=== PATIENT | female | born 1995 | race Caucasian/White ===

== ENCOUNTER 2016-11-05 19:18 | Observation (INO) | payer MEDICAID ==
[~2016-11-05] VITALS: Ht 177.8 cm; Wt 100.2 kg
[~2016-11-05 19:18] MED LIST: AMOX1TAB64 PO; ARIP2TAB PO; BIRTH CONTROL; CEFD300C2 PO; FERR325T10 PO; FLUO20CA8 PO; HYDR-3240 PO; IRON PO; LEVO25TA4 PO; LEVO75TA PO; OXCA300T3 PO; OXCA600T3 PO; QUET25TA PO; [UNRECOGNIZED DRUG - OTHER]
[2016-11-05 20:27] LABS: ASPARTATE AMINO TRANSFERASE 21 U/L (15-37); BLOOD UREA NITROGEN 8 mg/dL (7-18)
[2016-11-05 20:32] LABS: HEMOGLOBIN 15.8 g/dL (11.7-16.4)
[2016-11-05 20:41] LABS: ACETAMINOPHEN < 2 mcg/mL (10-30)
[2016-11-05] MEDS ORDERED: POLYETHYLENE GLYCOL 17 GM PACKET PO PRN (22:00)
[2016-11-05] MEDS ORDERED: DOCUSATE 100 MG CAPSULE PO PRN (22:00)
[2016-11-05] MEDS ORDERED: BISACODYL 10 MG SUPP PR PRN (22:00)
[2016-11-05] MEDS ORDERED: ACETAMINOPHEN 325 MG TABLET PO PRN (22:00)
[2016-11-05] MEDS ORDERED: QUETIAPINE 25MG TABLET PO PRN (22:00)
[2016-11-05 22:54] LABS: DAU SCREEN DISCLAIMER
[2016-11-05 23:01] LABS: PATH.CAST-FLAG NOT PRESENT; SPERM-FLAG NOT PRESENT; SRC-FLAG NOT PRESENT; XTAL-FLAG NOT PRESENT; YLC-FLAG NOT PRESENT
[2016-11-06 04:32] VITALS: BP 108/74
[2016-11-06 06:57] LABS: HEMOGLOBIN 14.7 g/dL (11.7-16.4)
[2016-11-06 07:58] VITALS: BP 110/74
[2016-11-06] MEDS: LEVOTHYROXINE 75 MCG TABLET PO SCH (08:18)
[2016-11-06] MEDS: FLUOXETINE 20 MG CAPSULE PO SCH (08:18)
[2016-11-06] MEDS: ARIPIPRAZOLE 2 MG TABLET PO SCH (08:18)
[2016-11-06 19:16] VITALS: BP 108/68
[2016-11-07 07:33] VITALS: BP 99/68
[2016-11-07] MEDS: FLUOXETINE 20 MG CAPSULE PO SCH (08:17)
[2016-11-07] MEDS: ARIPIPRAZOLE 2 MG TABLET PO SCH (08:17)
[2016-11-07] MEDS: LEVOTHYROXINE 75 MCG TABLET PO SCH (08:17)
[2016-11-07] MEDS ORDERED: LORA10TA62 PO (08:59)
[2016-11-07] MEDS ORDERED: CARB200T4 PO (08:59)
[2016-11-07] MEDS ORDERED: VENL150C6 PO (09:06)
[2016-11-07] MEDS ORDERED: SULF1TAB3 PO (13:57)
[2016-11-07] MEDS ORDERED: FLUO20CA8 PO ×2 (13:57→13:59)
== END 2016-11-07 15:00 ==
LOC: ED 20:20 → EDIP 21:18 → 3E 22:13
DX: R45.851 Suicidal ideations (principal); F31.9 Bipolar disorder, unspecified; E03.9 Hypothyroidism, unspecified; F25.9 Schizoaffective disorder, unspecified; N39.0 Urinary tract infection, site not specified; D72.829 Elevated white blood cell count, unspecified; R47.9 Unspecified speech disturbances; F41.9 Anxiety disorder, unspecified; Z91.5 Personal history of self-harm; Z98.890 Other specified postprocedural states
CPT/HCPCS: 36415; 80053; 80307; 80329; 81001; 84439; 84443; 84703; 85025; 87086; 99285; G0378; G0480

== ENCOUNTER 2016-12-19 20:18 | Observation (INO) | payer MEDICAID ==
[~2016-12-19] VITALS: Ht 177.8 cm; Wt 98.5 kg
[~2016-12-19 20:18] MED LIST changes: +CARB200T4 PO; -CEFD300C2 PO; +CEFD300C37 PO; +LORA10TA62 PO; +SULF1TAB3 PO; +VENL150C6 PO
[2016-12-19] MEDS ORDERED: CHARCOAL/SORBITOL 50 GM/240 ML PO ONE (21:00)
[2016-12-19] MEDS ORDERED: CHARCOAL/SORBITOL 50 GM/240 ML ONE (21:00)
[2016-12-19 21:14] LABS: BLOOD UREA NITROGEN 5 mg/dL (7-18)
[2016-12-19 21:15] LABS: ACETAMINOPHEN < 2 mcg/mL (10-30)
[2016-12-19 23:51] LABS: DAU SCREEN DISCLAIMER
[2016-12-20] MEDS ORDERED: POTASSIUM CHLORIDE 20 MEQ TAB.ER.PRT PO ONE (02:30)
[2016-12-20] MEDS ORDERED: DOCUSATE 100 MG CAPSULE PO PRN (02:30)
[2016-12-20] MEDS ORDERED: ACETAMINOPHEN 325 MG TABLET PO PRN (02:30)
[2016-12-20] MEDS ORDERED: BISACODYL 10 MG SUPP PR PRN (02:30)
[2016-12-20] MEDS ORDERED: POLYETHYLENE GLYCOL 17 GM PACKET PO PRN (02:30)
[2016-12-20 02:45] VITALS: BP 115/80
[2016-12-20 08:49] VITALS: BP 96/65
[2016-12-20] MEDS ORDERED: LEVOTHYROXINE 75 MCG TABLET PO SCH (09:00)
[2016-12-20 20:00] VITALS: BP 115/79
== END 2016-12-21 04:05 ==
LOC: ED 22:44 → EDIP 12-20 01:08 → 3E 12-20 02:44
PROVIDERS: ADMIT Internal Medicine; ATTEND Internal Medicine
DX: T50.902A Poisoning by unspecified drugs, medicaments and biological substances, intentional self-harm, initial encounter (principal); E03.9 Hypothyroidism, unspecified; D72.828 Other elevated white blood cell count; F31.9 Bipolar disorder, unspecified; F25.9 Schizoaffective disorder, unspecified; Z91.5 Personal history of self-harm; Z98.890 Other specified postprocedural states; X58.XXXA Exposure to other specified factors, initial encounter; Y93.89 Activity, other specified; Y92.89 Other specified places as the place of occurrence of the external cause; Y99.8 Other external cause status
CPT/HCPCS: 36415; 80048; 80307; 80329; 82040; 84439; 84443; 84703; 85025; 99285; G0378; G0480

== ENCOUNTER 2017-03-15 19:54 | Emergency (ER) | payer MEDICAID ==
[~2017-03-15] VITALS: Ht 177.8 cm; Wt 98.4 kg
[2017-03-15 19:55] VITALS: BP 116/81
== END 2017-03-15 21:07 | disposition home or self-care (01) ==
LOC: ED 20:40
DX: F33.9 Major depressive disorder, recurrent, unspecified (principal); E03.9 Hypothyroidism, unspecified; F41.9 Anxiety disorder, unspecified; F25.9 Schizoaffective disorder, unspecified
CPT/HCPCS: 99284

== ENCOUNTER 2017-03-23 11:55 | Observation (INO) | payer MEDICAID ==
[~2017-03-23] VITALS: Ht 175.3 cm; Wt 100.0 kg
[2017-03-23 12:33] LABS: DAU SCREEN DISCLAIMER
[2017-03-23] MEDS ORDERED: OXCA300T PO (12:36)
[2017-03-23] MEDS ORDERED: ZIPRASIDONE PO (12:36)
[2017-03-23] MEDS ORDERED: VENL75TA PO (12:36)
[2017-03-23 12:59] LABS: BLOOD UREA NITROGEN 7 mg/dL (7-18)
[2017-03-23 13:01] LABS: ACETAMINOPHEN < 2 mcg/mL (10-30)
[2017-03-23 13:09] LABS: HEMATOCRIT 45.1 % (34.6-47.8); WHITE BLOOD COUNT 10.9 x10^3/uL (3.4-10)
[2017-03-23] MEDS ORDERED: ZIPRASIDONE 20 MG INJ IM PRN (18:30)
[2017-03-23] MEDS ORDERED: DIPHENHYDRAMINE 50 MG CAPSULE PO PRN (18:30)
[2017-03-23] MEDS ORDERED: ONDANSETRON ODT 4 MG PO PRN (18:30)
[2017-03-23] MEDS ORDERED: ZIPRASIDONE 80 MG PO SCH (18:30)
[2017-03-23] MEDS ORDERED: ACETAMINOPHEN 325 MG TABLET PO PRN (18:30)
[2017-03-23 18:36] VITALS: BP 112/78
[2017-03-23 19:17] VITALS: BP 112/78
[2017-03-23] MEDS: ENOXAPARIN 40 MG/0.4 ML SQ SCH (20:00)
[2017-03-23] MEDS: NICOTINE 14MG/24 HR PATCH.TD24 TD SCH (21:30)
[2017-03-23] MEDS: VENLAFAXINE 75MG TABLET PO SCH (21:49)
[2017-03-24 07:15] VITALS: BP 109/76
[2017-03-24] MEDS: LEVOTHYROXINE 75 MCG TABLET PO SCH (08:24)
[2017-03-24] MEDS ORDERED: LEVOTHYROXINE 75 MCG TABLET PO SCH (09:00)
[2017-03-24] MEDS ORDERED: LORA10TA3 PO (09:14)
[2017-03-24] MEDS ORDERED: ZIPR80CA3 PO (09:14)
[2017-03-24] MEDS ORDERED: ZIPR40CA3 PO (09:14)
[2017-03-24] MEDS ORDERED: CARB100T4 PO (09:20)
[2017-03-24] MEDS ORDERED: ZIPRASIDONE 40MG CAPSULE PO SCH ×3 (09:30→21:00)
[2017-03-24] MEDS ORDERED: DOCUSATE 100 MG CAPSULE PO PRN (09:30)
[2017-03-24] MEDS ORDERED: ZIPRASIDONE 40MG CAPSULE ONE (10:06)
[2017-03-24] MEDS ORDERED: DOCUSATE 100 MG CAPSULE ONE (10:06)
[2017-03-24] MEDS: LORATADINE 10 MG TABLET PO SCH (10:11)
[2017-03-24 12:09] LABS: OCCBLD OBC PASS
[2017-03-24] MEDS: ZIPRASIDONE 40MG CAPSULE PO SCH (18:37)
[2017-03-24] MEDS: ENOXAPARIN 40 MG/0.4 ML SQ SCH (20:00)
[2017-03-24 20:17] VITALS: BP 114/82
[2017-03-24] MEDS ORDERED: CARBAMAZEPINE 200 MG TABLET PO SCH (21:00)
[2017-03-24] MEDS ORDERED: OXCARBAZEPINE PO SCH (21:00)
[2017-03-24] MEDS: OXCARBAZEPINE 150 MG TABLET PO SCH (21:00)
[2017-03-24] MEDS ORDERED: CARBAMAZEPINE 100 MG TAB.CHEW PO SCH (21:00)
[2017-03-24] MEDS: DIPHENHYDRAMINE 50 MG CAPSULE PO PRN (21:16)
[2017-03-24] MEDS: VENLAFAXINE 75MG TABLET PO SCH (21:17)
[2017-03-24] MEDS: NICOTINE 14MG/24 HR PATCH.TD24 TD SCH (21:18)
[2017-03-25 07:57] VITALS: BP 112/78
[2017-03-25] MEDS: LORATADINE 10 MG TABLET PO SCH (08:19)
[2017-03-25] MEDS: LEVOTHYROXINE 75 MCG TABLET PO SCH (08:19)
[2017-03-25] MEDS: OXCARBAZEPINE 150 MG TABLET PO SCH ×2 (08:20→21:00)
[2017-03-25] MEDS ORDERED: ENOXAPARIN 40 MG/0.4 ML SQ SCH (20:00)
[2017-03-25 20:38] VITALS: BP 110/78
[2017-03-25] MEDS: DIPHENHYDRAMINE 50 MG CAPSULE PO PRN (21:29)
[2017-03-25] MEDS: VENLAFAXINE 75MG TABLET PO SCH (21:29)
[2017-03-25] MEDS: NICOTINE 14MG/24 HR PATCH.TD24 TD SCH (21:30)
[2017-03-25] MEDS: ZIPRASIDONE 40MG CAPSULE PO SCH (21:30)
[2017-03-26 07:37] VITALS: BP 102/70
[2017-03-26] MEDS: LEVOTHYROXINE 75 MCG TABLET PO SCH (08:47)
[2017-03-26] MEDS: OXCARBAZEPINE 150 MG TABLET PO SCH (08:47)
[2017-03-26] MEDS: LORATADINE 10 MG TABLET PO SCH (09:00)
== END 2017-03-26 15:05 ==
LOC: ED 12:35 → EDIP 15:50 → 3E 18:34
PROVIDERS: ADMIT Internal Medicine; ATTEND Internal Medicine
DX: R45.851 Suicidal ideations (principal); F31.9 Bipolar disorder, unspecified; F17.203 Nicotine dependence unspecified, with withdrawal; D72.829 Elevated white blood cell count, unspecified; E03.9 Hypothyroidism, unspecified; F25.9 Schizoaffective disorder, unspecified; Z91.5 Personal history of self-harm; Z98.890 Other specified postprocedural states
CPT/HCPCS: 36415; 80048; 80307; 80329; 81003; 82040; 82272; 84439; 84443; 84703; 85025; 87046; 87491; 87591; 87899; 99285; G0378; Q0162; G0480

== ENCOUNTER 2017-05-09 15:10 | Emergency (ER) | payer MEDICAID ==
[~2017-05-09] VITALS: Ht 175.3 cm; Wt 99.6 kg
[~2017-05-09 15:10] MED LIST changes: -ARIP2TAB PO; +ARIP2TAB2 PO; +CARB100T4 PO; -FERR325T10 PO; +FERR325T17 PO; +LORA10TA3 PO; +OXCA300T PO; +SULF-169 PO; -SULF1TAB3 PO; +VENL75TA PO; +ZIPR40CA3 PO; +ZIPR80CA3 PO; +ZIPRASIDONE PO
[2017-05-09] MEDS ORDERED: SODIUM CHLORIDE 0.9% 1,000ML IVBOLUS ONE (16:00)
[2017-05-09] MEDS ORDERED: SODIUM CHLORIDE FLUSH 10ML SYR IVF ONE (16:00)
[2017-05-09 16:11] LABS: HEMATOCRIT 47.5 % (34.6-47.8); WHITE BLOOD COUNT 10.4 x10^3/uL (3.4-10)
[2017-05-09 16:21] LABS: ASPARTATE AMINO TRANSFERASE 15 U/L (15-37); BLOOD UREA NITROGEN 9 mg/dL (7-18)
[2017-05-09 16:43] VITALS: BP 109/68
== END 2017-05-09 18:02 | disposition home or self-care (01) ==
LOC: ED 17:40
DX: K62.5 Hemorrhage of anus and rectum (principal); N30.01 Acute cystitis with hematuria
CPT/HCPCS: 36415; 80053; 81001; 84703; 85025; 87086; 99284

== ENCOUNTER 2017-10-16 16:45 | Emergency (ER) | payer MEDICAID ==
[~2017-10-16] VITALS: Ht 175.3 cm; Wt 81.0 kg
[2017-10-16] MEDS ORDERED: ZIPRASIDONE 20 MG INJ IM ONE ×2 (18:20→19:00)
[2017-10-16 18:51] LABS: BASOPHILS # (AUTO) 0.02 x10^3/uL (0-0.1); BASOPHILS % (AUTO) 0 % (0-1); EOSINOPHILS # (AUTO) 0.01 x10^3/uL (0-0.4); EOSINOPHILS % (AUTO) 0 % (1-7); LYMPHOCYTES # (AUTO) 1.87 x10^3/uL (1-3.4); LYMPHOCYTES % (AUTO) 23 % (22-44); MD NO; MEAN CORPUSCULAR HEMOGLOBIN 32.2 pg (27.0-34.8); MEAN CORPUSCULAR HGB CONC 34.1 g/dL (32.4-35.8); MEAN CORPUSCULAR VOLUME 94.4 fL (80-100); MEAN PLATELET VOLUME 8.6 fL (7.4-10.4); MONOCYTES # (AUTO) 0.33 x10^3/uL (0.2-0.8); MONOCYTES % (AUTO) 4 % (2-9); NEUTROPHILS # (AUTO) 6.04 x10^3/uL (1.8-6.8); NEUTROPHILS % (AUTO) 73 % (42-75); PLATELET COUNT 226 x10^3/uL (130-400); RED BLOOD COUNT 4.69 x10^6/uL (3.82-5.3); RED CELL DISTRIBUTION WIDTH 13.6 % (9.6-15.2)
[2017-10-16 18:54] LABS: ANION GAP 11 mmol/L (5-15); CALCIUM 8.8 mg/dL (8.5-10.1); CHLORIDE 108 mmol/L (98-107); CREATININE 0.95 mg/dL (0.55-1.02)
[2017-10-16 18:59] LABS: FREE T4 (FREE THYROXINE) 1.03 ng/dL (0.76-1.46)
[2017-10-16 19:01] LABS: ACETAMINOPHEN < 2 mcg/mL (10-30); SALICYLATE LEVEL < 1.7 mg/dL (2.8-20.0)
[2017-10-16] MEDS ORDERED: LEVO88TA4 PO (20:10)
[2017-10-16] MEDS ORDERED: ZIPR60CA3 PO (20:11)
[2017-10-16] MEDS ORDERED: HYDR25TA11 PO (20:12)
[2017-10-16 20:22] LABS: AMPHETAMINE SCREEN, URINE Negative (Negative); BARBITURATE SCREEN, URINE Negative (Negative); BENZODIAZEPINE SCREEN, URINE Negative (Negative); CANNABINOID SCREEN, URINE Negative (Negative); COCAINE SCREEN, URINE Negative (Negative); METHADONE SCREEN, URINE Negative (Negative); OPIATE SCREEN, URINE Negative (Negative)
[2017-10-16] MEDS ORDERED: ACETAMINOPHEN 325 MG TABLET PO PRN (22:00)
[2017-10-16] MEDS ORDERED: OXCARBAZEPINE 300MG TABLET PO SCH (22:00)
[2017-10-16] MEDS ORDERED: ZIPRASIDONE HCL 60 MG PO SCH (22:00)
[2017-10-16] MEDS ORDERED: ONDANSETRON ODT 4 MG PO PRN (22:00)
[2017-10-17 01:13] LABS: CULTURE INDICATED? YES; MICROSCOPIC INDICATED
[2017-10-17] MEDS ORDERED: ZIPRASIDONE 20MG CAPSULE ONE (03:09)
[2017-10-17] MEDS ORDERED: ERGOCALCIFEROL 50,000 UNIT CAPSULE PO SCH (08:00)
[2017-10-17] MEDS ORDERED: ZIPRASIDONE HCL 60 MG PO SCH (08:43)
[2017-10-17] MEDS ORDERED: VENLAFAXINE 75MG TABLET PO SCH (09:00)
[2017-10-17] MEDS ORDERED: LEVOTHYROXINE 88 MCG TABLET PO SCH (09:00)
[2017-10-17 12:40] VITALS: BP 103/68
== END 2017-10-17 20:22 | disposition home or self-care (01) ==
LOC: ED 19:00 → INTOOBSV 21:04 → EDIP 21:04 → UNDOADMOB 21:04 → ED 10-17 20:22
DX: R45.851 Suicidal ideations (principal); F33.9 Major depressive disorder, recurrent, unspecified; E03.9 Hypothyroidism, unspecified; F20.9 Schizophrenia, unspecified; R82.99 Other abnormal findings in urine; Z79.899 Other long term (current) drug therapy
CPT/HCPCS: 36415; 80048; 80307; 80329; 81001; 82040; 82306; 82607; 84439; 84443; 84703; 85025; 87086; 93005; 96372; 99285; J3486; Q0177; G0480

== ENCOUNTER 2018-03-15 14:39 | Emergency (ER) | payer MEDICAID ==
[~2018-03-15] VITALS: Ht 175.3 cm; Wt 90.0 kg
[~2018-03-15 14:39] MED LIST changes: +HYDR25TA11 PO; +LEVO88TA4 PO; +ZIPR60CA3 PO
[2018-03-15] MEDS ORDERED: DIAZEPAM 5 MG TABLET ONE (14:54)
[2018-03-15] MEDS ORDERED: KETOROLAC 30 MG/1 ML ONE (14:54)
[2018-03-15 15:12] LABS: BASOPHILS # (AUTO) 0.06 x10^3/uL (0-0.1); BASOPHILS % (AUTO) 1 % (0-1); EOSINOPHILS # (AUTO) 0.09 x10^3/uL (0-0.4); EOSINOPHILS % (AUTO) 1 % (1-7); LYMPHOCYTES # (AUTO) 2.02 x10^3/uL (1-3.4); LYMPHOCYTES % (AUTO) 25 % (22-44); MD NO; MEAN CORPUSCULAR HEMOGLOBIN 30.9 pg (27.0-34.8); MEAN CORPUSCULAR HGB CONC 33.7 g/dL (32.4-35.8); MEAN CORPUSCULAR VOLUME 91.8 fL (80-100); MEAN PLATELET VOLUME 8.8 fL (7.4-10.4); MONOCYTES # (AUTO) 0.36 x10^3/uL (0.2-0.8); MONOCYTES % (AUTO) 4 % (2-9); NEUTROPHILS # (AUTO) 5.61 x10^3/uL (1.8-6.8); NEUTROPHILS % (AUTO) 69 % (42-75); PLATELET COUNT 220 x10^3/uL (130-400); RED BLOOD COUNT 4.39 x10^6/uL (3.82-5.3); RED CELL DISTRIBUTION WIDTH 13.3 % (9.6-15.2)
[2018-03-15 15:21] LABS: ALBUMIN 3.9 g/dL (3.4-5.0); ANION GAP 7 mmol/L (5-15); CALCIUM 8.8 mg/dL (8.5-10.1); CHLORIDE 106 mmol/L (98-107); CREATININE 0.87 mg/dL (0.55-1.02)
[2018-03-15 15:22] LABS: SALICYLATE LEVEL < 1.7 mg/dL (2.8-20.0)
[2018-03-15 15:23] LABS: ACETAMINOPHEN < 2 mcg/mL (10-30)
[2018-03-15 17:04] LABS: HCG UR SG 1.018 (1.003-1.030)
[2018-03-15 17:17] LABS: AMPHETAMINE SCREEN, URINE Negative (Negative); BARBITURATE SCREEN, URINE Negative (Negative); BENZODIAZEPINE SCREEN, URINE Negative (Negative); CANNABINOID SCREEN, URINE Negative (Negative); COCAINE SCREEN, URINE Negative (Negative); METHADONE SCREEN, URINE Negative (Negative); OPIATE SCREEN, URINE Negative (Negative)
[2018-03-15 18:04] VITALS: BP 107/82
== END 2018-03-15 21:54 | disposition home or self-care (01) ==
LOC: ED 17:08
DX: F29 Unspecified psychosis not due to a substance or known physiological condition (principal); F32.9 Major depressive disorder, single episode, unspecified
CPT/HCPCS: 36415; 80048; 80307; 80329; 81025; 82040; 85025; 99284; G0480

== ENCOUNTER 2019-01-10 12:12 | Emergency (ER) | payer MEDICARE, MEDICAID ==
[~2019-01-10] VITALS: Ht 177.8 cm; Wt 97.0 kg
[~2019-01-10 12:12] MED LIST changes: +LORA-247 PO; -LORA10TA3 PO; -OXCA300T PO; +OXCA300T19 PO; -QUET25TA PO; +QUET25TA7 PO
--- NOTE | 2019-01-10 12:54 | NUR ---
pt up to rr by self with steady gait.
[2019-01-10 12:59] LABS: BASOPHILS # (AUTO) 0.04 x10^3/uL (0-0.1); BASOPHILS % (AUTO) 1 % (0-1); EOSINOPHILS # (AUTO) 0.29 x10^3/uL (0-0.4); EOSINOPHILS % (AUTO) 4 % (1-7); LYMPHOCYTES # (AUTO) 2.31 x10^3/uL (1-3.4); LYMPHOCYTES % (AUTO) 29 % (22-44); MD NO; MEAN CORPUSCULAR HEMOGLOBIN 31.1 pg (27.0-34.8); MEAN CORPUSCULAR HGB CONC 32.9 g/dL (32.4-35.8); MEAN CORPUSCULAR VOLUME 94.3 fL (80-100); MEAN PLATELET VOLUME 8.9 fL (7.4-10.4); MONOCYTES # (AUTO) 0.36 x10^3/uL (0.2-0.8); MONOCYTES % (AUTO) 5 % (2-9); NEUTROPHILS # (AUTO) 4.91 x10^3/uL (1.8-6.8); NEUTROPHILS % (AUTO) 62 % (42-75); PLATELET COUNT 215 x10^3/uL (130-400); RED BLOOD COUNT 4.62 x10^6/uL (3.82-5.3); RED CELL DISTRIBUTION WIDTH 13.4 % (9.6-15.2)
--- NOTE | 2019-01-10 13:04 | NUR ---
pt to ed for intermittent abd pain x3-6 months. pt states lmp 107 days ago and that per her pcp, she is not . pt states she is following up with pcp on this issue. pt also reports syncopal episode last friday with +loc. pt connected to monitors. vss. no ectopy noted. edpa to bs for assessment. awaiting further orders.
[2019-01-10 13:16] LABS: ALANINE AMINOTRANSFERASE 22 U/L (12-78); ALBUMIN 3.7 g/dL (3.4-5.0); ANION GAP 6 mmol/L (5-15); CALCIUM 8.8 mg/dL (8.5-10.1); CHLORIDE 111 mmol/L (98-107); CREATININE 0.99 mg/dL (0.55-1.02)
[2019-01-10 13:20] LABS: ALKALINE PHOSPHATASE 108 U/L (45-117); BILIRUBIN,TOTAL 0.4 mg/dL (0.2-1.0)
[2019-01-10 13:44] LABS: MICROSCOPIC NOT IND
--- NOTE | 2019-01-10 13:45 | NUR ---
pt resting in room. vss. no needs expressed. awaiting lab results.
[2019-01-10 13:57] LABS: CULTURE INDICATED? NO
--- NOTE | 2019-01-10 14:46 | NUR ---
pt resting in room. vss. iv established with us saiance. no needs expressed. awaiting ct.
[2019-01-10] MEDS ORDERED: OMNIPAQUE 350 MG/ML, 100ML BOTTLE ONE (15:41)
--- NOTE | 2019-01-10 15:44 | NUR ---
pt resting in room. vss. all results back at this time. chart up for recheck.
[2019-01-10 16:37] VITALS: BP 109/91
== END 2019-01-10 16:41 | disposition home or self-care (01) ==
LOC: ED 14:44
DX: R10.84 Generalized abdominal pain (principal); R11.2 Nausea with vomiting, unspecified; F25.9 Schizoaffective disorder, unspecified; Z72.9 Problem related to lifestyle, unspecified; F31.9 Bipolar disorder, unspecified; E03.9 Hypothyroidism, unspecified
CPT/HCPCS: 36415; 74177; 80053; 81003; 84702; 85025; 93005; 99284; Q9967

== ENCOUNTER 2019-01-30 10:18 | Inpatient (IN) | payer MEDICARE, MEDICAID ==
[~2019-01-30] VITALS: Ht 177.8 cm; Wt 97.0 kg
--- NOTE | 2019-01-30 10:41 | NUR ---
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 pt reports no previous attempts of suicide. mother at bedside. no acute distress noted.
[2019-01-30] MEDS ORDERED: LEVO100T5 PO (10:50)
[2019-01-30] MEDS ORDERED: QUET25TA7 PO (10:50)
[2019-01-30] MEDS ORDERED: PARO10TA3 PO (10:50)
[2019-01-30 11:18] LABS: BASOPHILS # (AUTO) 0.04 x10^3/uL (0-0.1); BASOPHILS % (AUTO) 1 % (0-1); EOSINOPHILS # (AUTO) 0.16 x10^3/uL (0-0.4); EOSINOPHILS % (AUTO) 2 % (1-7); LYMPHOCYTES # (AUTO) 2.03 x10^3/uL (1-3.4); LYMPHOCYTES % (AUTO) 23 % (22-44); MD NO; MEAN CORPUSCULAR HEMOGLOBIN 30.3 pg (27.0-34.8); MEAN CORPUSCULAR HGB CONC 32.6 g/dL (32.4-35.8); MEAN PLATELET VOLUME 8.4 fL (7.4-10.4); MONOCYTES # (AUTO) 0.42 x10^3/uL (0.2-0.8); MONOCYTES % (AUTO) 5 % (2-9); NEUTROPHILS # (AUTO) 6.07 x10^3/uL (1.8-6.8); NEUTROPHILS % (AUTO) 70 % (42-75); PLATELET COUNT 224 x10^3/uL (130-400); RED BLOOD COUNT 4.49 x10^6/uL (3.82-5.3); RED CELL DISTRIBUTION WIDTH 13.3 % (9.6-15.2)
[2019-01-30 11:30] LABS: ALBUMIN 3.7 g/dL (3.4-5.0); ANION GAP 7 mmol/L (5-15); CALCIUM 8.8 mg/dL (8.5-10.1); CHLORIDE 111 mmol/L (98-107); CREATININE 0.89 mg/dL (0.55-1.02)
[2019-01-30 11:44] LABS: SALICYLATE LEVEL < 1.7 mg/dL (2.8-20.0)
[2019-01-30 11:53] LABS: AMPHETAMINE SCREEN, URINE Negative (Negative); BARBITURATE SCREEN, URINE Negative (Negative); BENZODIAZEPINE SCREEN, URINE Negative (Negative); CANNABINOID SCREEN, URINE Negative (Negative); COCAINE SCREEN, URINE Negative (Negative); METHADONE SCREEN, URINE Negative (Negative); OPIATE SCREEN, URINE Negative (Negative)
--- NOTE | 2019-01-30 12:08 | NUR ---
PT MOTHER LEFT. PT CALM AND COOPERATIVE. BLANKET PROVIDED. MEAL TRY ORDERED.
--- NOTE | 2019-01-30 12:14 | NUR ---
MEAL TRAY ORDERED
--- NOTE | 2019-01-30 12:15 | NUR ---
PT SECURED IN ROOM, ROLLER GILLESPIE DOWN, SITTER AT BEDSIDE.
--- NOTE | 2019-01-30 12:39 | NUR ---
PT PROVIDED WITH SUICIDE/SECURITY LUNCH TRAY
--- NOTE | 2019-01-30 12:53 | NUR ---
REPORT GIVEN TO TAMELA DELGADO 2N
[2019-01-30] MEDS ORDERED: ACETAMINOPHEN 325 MG TABLET PO PRN (13:00)
[2019-01-30 13:08] VITALS: BP 121/87
== END 2019-01-30 17:26 | DRG 885 ==
LOC: ED 11:51 → EDIP 11:52 → ED 12:02 → 2N 13:05
PROVIDERS: ADMIT Internal Medicine; ATTEND Internal Medicine
DX: F25.0 Schizoaffective disorder, bipolar type (principal); R45.851 Suicidal ideations; E03.9 Hypothyroidism, unspecified; F41.1 Generalized anxiety disorder; Z80.0 Family history of malignant neoplasm of digestive organs; Z91.5 Personal history of self-harm
CPT/HCPCS: 36415; 80048; 80307; 82040; 84443; 84703; 85025; 99285; G0378

== ENCOUNTER 2019-01-30 14:30 | Inpatient (IN) | payer MEDICARE, MEDICAID ==
[~2019-01-30] VITALS: Ht 177.8 cm; Wt 95.6 kg
[~2019-01-30 14:30] MED LIST changes: +LEVO100T5 PO; +PARO10TA3 PO
[2019-01-30] MEDS ORDERED: ACETAMINOPHEN 325 MG TABLET PO PRN (16:30)
[2019-01-30] MEDS ORDERED: POLYETHYLENE GLYCOL 17 GM PACKET PO PRN (16:30)
[2019-01-30] MEDS ORDERED: BISACODYL 10 MG SUPP PR PRN (16:30)
[2019-01-30] MEDS ORDERED: DOCUSATE 100 MG CAPSULE PO PRN (16:30)
[2019-01-30 17:57] VITALS: BP 112/77
[2019-01-30 19:45] VITALS: BP 123/82
[2019-01-30] MEDS: ZIPRASIDONE 20MG CAPSULE PO SCH (21:16)
[2019-01-30] MEDS: OXCARBAZEPINE 300MG TABLET PO SCH (21:17)
[2019-01-31] MEDS: LEVOTHYROXINE 100 MCG TABLET PO SCH (05:38)
[2019-01-31 06:24] LABS: CULTURE INDICATED? YES; MICROSCOPIC INDICATED
[2019-01-31 06:24] LABS: ANION GAP 6 mmol/L (5-15); CALCIUM 8.7 mg/dL (8.5-10.1); CHLORIDE 109 mmol/L (98-107); CHOLESTEROL, TOTAL 174 mg/dL (140-239); CREATININE 0.79 mg/dL (0.55-1.02)
[2019-01-31 06:49] LABS: CHOL/HDL RATIO 2.5; HDL CHOL % 40 % (28-40); HDL CHOLESTEROL (DIRECT) 69 mg/dL (40-60); LDL CHOLESTEROL,CALCULATED 91 mg/dL (54-169); LDL/HDL RATIO 1.3 (0.5-3.0); TRIGLYCERIDES 70 mg/dL (50-200); VLDL CHOLESTEROL 14 mg/dL (0-25)
[2019-01-31 07:00] VITALS: BP 110/72
[2019-01-31] MEDS: PAROXETINE 10 MG TABLET PO SCH (08:45)
[2019-01-31] MEDS: OXCARBAZEPINE 300MG TABLET PO SCH ×2 (08:45→20:29)
[2019-01-31] MEDS: QUETIAPINE 25MG TABLET PO SCH (08:45)
[2019-01-31 19:13] VITALS: BP 103/69
[2019-01-31] MEDS: ZIPRASIDONE 20MG CAPSULE PO SCH (20:30)
[2019-02-01] MEDS: LEVOTHYROXINE 100 MCG TABLET PO SCH (05:53)
[2019-02-01 07:03] VITALS: BP 106/73
[2019-02-01] MEDS: OXCARBAZEPINE 300MG TABLET PO SCH ×2 (08:26→19:52)
[2019-02-01] MEDS: QUETIAPINE 25MG TABLET PO SCH (08:26)
[2019-02-01] MEDS: PAROXETINE 10 MG TABLET PO SCH (08:26)
[2019-02-01 15:01] LABS: CULTURE INDICATED? YES; MICROSCOPIC INDICATED
[2019-02-01] MEDS: ZIPRASIDONE 20MG CAPSULE PO SCH (19:51)
[2019-02-01 20:00] VITALS: BP 109/75
[2019-02-02] MEDS: LEVOTHYROXINE 100 MCG TABLET PO SCH (06:00)
[2019-02-02 07:10] VITALS: BP 129/76
[2019-02-02] MEDS: PAROXETINE 10 MG TABLET PO SCH (08:16)
[2019-02-02] MEDS: OXCARBAZEPINE 300MG TABLET PO SCH ×2 (08:16→20:23)
[2019-02-02] MEDS: QUETIAPINE 25MG TABLET PO SCH (08:16)
[2019-02-02 19:46] VITALS: BP 105/67
[2019-02-02] MEDS: ZIPRASIDONE 20MG CAPSULE PO SCH (20:23)
[2019-02-03] MEDS: LEVOTHYROXINE 100 MCG TABLET PO SCH (05:51)
[2019-02-03 07:47] VITALS: BP 90/56
[2019-02-03] MEDS: PAROXETINE 10 MG TABLET PO SCH (08:34)
[2019-02-03] MEDS: OXCARBAZEPINE 300MG TABLET PO SCH ×2 (08:34→20:36)
[2019-02-03] MEDS: QUETIAPINE 25MG TABLET PO SCH (08:35)
[2019-02-03 19:36] VITALS: BP 107/74
[2019-02-03] MEDS: ZIPRASIDONE 20MG CAPSULE PO SCH (20:36)
[2019-02-04 07:13] VITALS: BP 95/62
[2019-02-04] MEDS: LEVOTHYROXINE 100 MCG TABLET PO SCH (07:25)
[2019-02-04] MEDS: PAROXETINE 10 MG TABLET PO SCH (08:27)
[2019-02-04] MEDS: OXCARBAZEPINE 300MG TABLET PO SCH (08:28)
[2019-02-04] MEDS: QUETIAPINE 25MG TABLET PO SCH (08:28)
== END 2019-02-04 15:26 | disposition home or self-care (01) | DRG 885 ==
LOC: 3E 14:30
PROVIDERS: ADMIT Psychiatry & Neurology Psychosomatic Medicine; ATTEND Psychiatry & Neurology Psychosomatic Medicine
DX: F25.0 Schizoaffective disorder, bipolar type (principal); R45.851 Suicidal ideations; E03.9 Hypothyroidism, unspecified; E66.9 Obesity, unspecified; Z68.30 Body mass index [BMI] 30.0-30.9, adult; Z79.890 Hormone replacement therapy; Z79.899 Other long term (current) drug therapy; Z80.0 Family history of malignant neoplasm of digestive organs; Z91.5 Personal history of self-harm
CPT/HCPCS: 36415; 80048; 80061; 81001; 82140; 82607; 84439; 86592; 87086; 93005

== ENCOUNTER 2019-09-17 12:56 | Emergency (ER) | payer MEDICARE, MEDICAID ==
[~2019-09-17] VITALS: Ht 175.3 cm; Wt 96.0 kg
[~2019-09-17 12:56] MED LIST changes: +HYDR-826 PO; -HYDR25TA11 PO
[2019-09-17 13:26] VITALS: BP 117/86
--- NOTE | 2019-09-17 13:39 | NUR ---
patient arrives with a cold that began six weeks after a gallbladder surgery. then today she states she has a cough, cold and is tired. no cough noted while in room.
[2019-09-17] MEDS ORDERED: IBUPROFEN 200 MG TABLET ONE (14:31)
[2019-09-17] MEDS ORDERED: IBUPROFEN 600 MG TABLET PO ONE (15:00)
== END 2019-09-17 16:07 | disposition home or self-care (01) ==
LOC: ED 16:00
DX: J00 Acute nasopharyngitis [common cold] (principal); E03.9 Hypothyroidism, unspecified
CPT/HCPCS: 71046; 99283

== ENCOUNTER 2020-02-11 19:55 | Emergency (ER) | payer MEDICARE, MEDICAID ==
[~2020-02-11] VITALS: Ht 177.8 cm; Wt 89.5 kg
[~2020-02-11 19:55] MED LIST changes: +FLUO20CA23 PO; -FLUO20CA8 PO
[2020-02-11 20:34] LABS: BASOPHILS # (AUTO) 0.05 x10^3/uL (0-0.1); BASOPHILS % (AUTO) 1 % (0-1); EOSINOPHILS # (AUTO) 0.16 x10^3/uL (0-0.4); EOSINOPHILS % (AUTO) 2 % (1-7); LYMPHOCYTES # (AUTO) 2.88 x10^3/uL (1-3.4); LYMPHOCYTES % (AUTO) 30 % (22-44); MD NO; MEAN CORPUSCULAR HEMOGLOBIN 30.4 pg (27.0-34.8); MEAN CORPUSCULAR HGB CONC 33.1 g/dL (32.4-35.8); MEAN CORPUSCULAR VOLUME 91.9 fL (80-100); MEAN PLATELET VOLUME 9.2 fL (7.4-10.4); MONOCYTES # (AUTO) 0.43 x10^3/uL (0.2-0.8); MONOCYTES % (AUTO) 5 % (2-9); NEUTROPHILS # (AUTO) 5.96 x10^3/uL (1.8-6.8); NEUTROPHILS % (AUTO) 63 % (42-75); PLATELET COUNT 226 x10^3/uL (130-400); RED BLOOD COUNT 4.74 x10^6/uL (3.82-5.3); RED CELL DISTRIBUTION WIDTH 14.1 % (9.6-15.2)
[2020-02-11 20:42] LABS: ALANINE AMINOTRANSFERASE 21 U/L (12-78); ALBUMIN 3.9 g/dL (3.4-5.0); ANION GAP 6 mmol/L (5-15); CALCIUM 9.1 mg/dL (8.5-10.1); CHLORIDE 106 mmol/L (98-107)
[2020-02-11 20:47] LABS: ALKALINE PHOSPHATASE 100 U/L (45-117); BILIRUBIN,TOTAL 0.5 mg/dL (0.2-1.0); CREATININE 0.86 mg/dL (0.55-1.02); TOTAL PROTEIN 7.6 g/dL (6.4-8.2); TROPONIN I < 0.015 ng/mL (0.000-0.045)
[2020-02-11] MEDS ORDERED: KETOROLAC 60 MG/2 ML IM ONE (23:00)
[2020-02-11] MEDS ORDERED: KETOROLAC 60 MG/2 ML ONE (23:12)
[2020-02-11 23:17] VITALS: BP 118/77
--- NOTE | 2020-02-11 23:18 | NUR ---
Patient presents to ER c/o global CP which radiates to abd and all extremities. Patient describes the pain as stabbing and states she has had it for three weeks. Patient denies other associated symptoms such as N/V, dizziness, SOB. Patient is in NAD. Respirations even and unlabored.
[2020-02-11 23:30] LABS: HCG UR SG 1.037 (1.003-1.030); MICROSCOPIC AUTO
== END 2020-02-12 00:09 | disposition home or self-care (01) ==
LOC: ED 23:10
DX: R10.84 Generalized abdominal pain (principal); R07.89 Other chest pain; R11.2 Nausea with vomiting, unspecified; R94.31 Abnormal electrocardiogram [ECG] [EKG]; E03.9 Hypothyroidism, unspecified
CPT/HCPCS: 36415; 71046; 80053; 81001; 81025; 83690; 84484; 85025; 87086; 93005; 96372; 99285; J1885

== ENCOUNTER 2020-04-08 18:23 | Emergency (ER) | payer MEDICARE, MEDICAID ==
[~2020-04-08] VITALS: Ht 177.8 cm; Wt 94.5 kg
[2020-04-08 18:33] VITALS: BP 113/82
[2020-04-08 19:25] LABS: BASOPHILS # (AUTO) 0.04 x10^3/uL (0-0.1); BASOPHILS % (AUTO) 0 % (0-1); EOSINOPHILS # (AUTO) 0.26 x10^3/uL (0-0.4); EOSINOPHILS % (AUTO) 3 % (1-7); LYMPHOCYTES # (AUTO) 1.94 x10^3/uL (1-3.4); LYMPHOCYTES % (AUTO) 21 % (22-44); MD NO; MEAN CORPUSCULAR HEMOGLOBIN 29.6 pg (27.0-34.8); MEAN CORPUSCULAR HGB CONC 32.3 g/dL (32.4-35.8); MEAN CORPUSCULAR VOLUME 91.5 fL (80-100); MEAN PLATELET VOLUME 8.5 fL (7.4-10.4); MONOCYTES # (AUTO) 0.49 x10^3/uL (0.2-0.8); MONOCYTES % (AUTO) 5 % (2-9); NEUTROPHILS # (AUTO) 6.51 x10^3/uL (1.8-6.8); NEUTROPHILS % (AUTO) 71 % (42-75); PLATELET COUNT 218 x10^3/uL (130-400); RED BLOOD COUNT 4.26 x10^6/uL (3.82-5.3); RED CELL DISTRIBUTION WIDTH 13.6 % (9.6-15.2)
[2020-04-08 19:34] LABS: ALANINE AMINOTRANSFERASE 32 U/L (12-78); ALBUMIN 3.6 g/dL (3.4-5.0); ANION GAP 9 mmol/L (5-15); CALCIUM 8.5 mg/dL (8.5-10.1); CHLORIDE 107 mmol/L (98-107); CREATININE 0.85 mg/dL (0.55-1.02)
[2020-04-08 19:35] LABS: SALICYLATE LEVEL < 1.7 mg/dL (2.8-20.0)
[2020-04-08 19:37] LABS: AMPHETAMINE SCREEN, URINE Negative (Negative); BARBITURATE SCREEN, URINE Negative (Negative); BENZODIAZEPINE SCREEN, URINE Negative (Negative); CANNABINOID SCREEN, URINE Negative (Negative); COCAINE SCREEN, URINE Negative (Negative); METHADONE SCREEN, URINE Negative (Negative); OPIATE SCREEN, URINE Negative (Negative)
[2020-04-08 19:39] LABS: ALKALINE PHOSPHATASE 87 U/L (45-117); BILIRUBIN,TOTAL 0.3 mg/dL (0.2-1.0); TOTAL PROTEIN 6.9 g/dL (6.4-8.2)
--- NOTE | 2020-04-08 19:53 | NUR ---
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 she has no plan and made no attempts to contact her therapist prior to coming to ED. pt states if she is discharged home her plan is to sleep and not help her mom with the chores around the house. she states her hope is that we will send her to [facility]. pt also states that she stopped taking her psych medications 2 weeks ago at the instruction of her phychiatrist.
--- NOTE | 2020-04-08 19:55 | NUR ---
[facility] forensic social worker conducting assessment with me
[2020-04-08] MEDS ORDERED: latuda (19:56)
--- NOTE | 2020-04-08 19:59 | NUR ---
pt to be discharged home with mother
== END 2020-04-08 20:46 | disposition home or self-care (01) ==
LOC: ED 19:23
DX: F32.9 Major depressive disorder, single episode, unspecified (principal); E03.9 Hypothyroidism, unspecified; F20.9 Schizophrenia, unspecified
CPT/HCPCS: 36415; 80053; 80307; 84703; 85025; 99283

== ENCOUNTER 2020-07-31 13:49 | Emergency (ER) | payer MEDICARE, MEDICAID ==
[~2020-07-31] VITALS: Ht 177.8 cm; Wt 102.8 kg
[~2020-07-31 13:49] MED LIST changes: +LORA-59 PO; -LORA10TA62 PO; +latuda
[2020-07-31] MEDS ORDERED: QUET25TA5 PO (14:47)
--- NOTE | 2020-07-31 14:51 | NUR ---
DR DUBOIS AT BEDSIDE. PT ASSESSMENT AND POC DISCUSSED, QUESTIONS ANSWERED. PT VSS, CALL LIGHT W/I REACH.
[2020-07-31] MEDS ORDERED: LOPERAMIDE 2 MG CAPSULE PO ONE (15:00)
[2020-07-31] MEDS ORDERED: ONDANSETRON ODT 4 MG PO ONE (15:00)
[2020-07-31] MEDS ORDERED: MAALOX/HYOSCYAMINE/LIDOCAINE 45 ML BTL PO ONE (15:00)
[2020-07-31] MEDS ORDERED: LOPERAMIDE 2 MG CAPSULE ONE (15:02)
[2020-07-31] MEDS ORDERED: ONDANSETRON ODT 4 MG ONE (15:03)
[2020-07-31] MEDS ORDERED: MAALOX/HYOSCYAMINE/LIDOCAINE 45 ML BTL ONE (15:03)
[2020-07-31 15:05] VITALS: BP 122/76
== END 2020-07-31 15:56 | disposition home or self-care (01) ==
LOC: ED 15:15
DX: A08.4 Viral intestinal infection, unspecified (principal); Z20.828 Contact with and (suspected) exposure to other viral communicable diseases; J02.9 Acute pharyngitis, unspecified; R51.9 Headache, unspecified; R53.83 Other fatigue; E03.9 Hypothyroidism, unspecified
CPT/HCPCS: 87635; 99284; Q0162

== ENCOUNTER 2020-08-22 16:36 | Emergency (ER) | payer MEDICARE, MEDICAID ==
[~2020-08-22] VITALS: Ht 177.8 cm; Wt 103.3 kg
[~2020-08-22 16:36] MED LIST changes: +QUET25TA5 PO
[2020-08-22 17:31] LABS: MICROSCOPIC INDICATED
[2020-08-22 17:34] LABS: ANION GAP 4 mmol/L (5-15); CHLORIDE 109 mmol/L (98-107)
[2020-08-22 17:43] LABS: HCG UR SG 1.022 (1.003-1.030)
--- NOTE | 2020-08-22 18:21 | NUR ---
PT TO CT
--- NOTE | 2020-08-22 19:11 | NUR ---
BACK FROM US
[2020-08-22 19:30] LABS: BASOPHILS % (AUTO) 1 % (0-1); EOSINOPHILS % (AUTO) 4 % (1-7); LYMPHOCYTES % (AUTO) 25 % (22-44); MEAN CORPUSCULAR HGB CONC 33.1 g/dL (32.4-35.8); MEAN PLATELET VOLUME 8.8 fL (7.4-10.4); MONOCYTES % (AUTO) 5 % (2-9); NEUTROPHILS % (AUTO) 65 % (42-75); PLATELET COUNT 238 x10^3/uL (130-400)
[2020-08-22] MEDS ORDERED: OXYcodone/APAP 5/325MG TABLET PO ONE (19:30)
[2020-08-22] MEDS ORDERED: OXYcodone/APAP 5/325MG TABLET ONE (19:38)
[2020-08-22 19:42] LABS: MD NO
--- NOTE | 2020-08-22 20:19 | NUR ---
MD AT BEDSIDE TO DISCUSS PLAN OF CARE, QUESTIONS ANSWERED. STRAIGHT CATH PERFORMED PER ORDER. MD NOTIFIED OF [employer] SUBSTANCE AT WHEN CLEANING. PER MD, SET UP FOR PELVIC EXAM.
[2020-08-22 20:22] LABS: MICROSCOPIC NOT IND
[2020-08-22 20:51] VITALS: BP 110/87
--- NOTE | 2020-08-22 20:51 | NUR ---
PT RESTING IN GURNEY WATCHING TV, NAD NOTED. PELVIC COMPLETE, NO RX PER ERP AT THIS TIME. PT UP TO DRESS SELF. AWAITING LAB RESULTS.
[2020-08-22 20:55] LABS: CLUE CELLS NONE SEEN (NONE SEEN)
[2020-08-22 20:57] LABS: WET PREP WBCS NONE SEEN (FEW)
--- NOTE | 2020-08-22 21:40 | NUR ---
DC EDUCATION PROVIDED, PT DEMONSTRATES UNDERSTANDING. PT AMBULATED STEADILY TO DC WITH RN
== END 2020-08-22 21:56 | disposition home or self-care (01) ==
LOC: ED 19:23
DX: S60.221A Contusion of right hand, initial encounter (principal); G89.29 Other chronic pain; R10.31 Right lower quadrant pain; R10.2 Pelvic and perineal pain; X58.XXXA Exposure to other specified factors, initial encounter; Y93.89 Activity, other specified; Y92.89 Other specified places as the place of occurrence of the external cause; Y99.8 Other external cause status
CPT/HCPCS: 36415; 76830; 76857; 80048; 81001; 81003; 81025; 85025; 87086; 87210; 87491; 87591; 87808; 99285

== ENCOUNTER 2020-09-09 20:02 | Emergency (ER) | payer MEDICARE, MEDICAID ==
[~2020-09-09] VITALS: Ht 177.8 cm; Wt 104.1 kg
[~2020-09-09 20:02] MED LIST changes: +HYDR-1067 PO; -HYDR-3240 PO
--- NOTE | 2020-09-09 20:34 | NUR ---
PT REPORTS COMING INTO ED TONIGHT FOR A HEADACHE X3DAYS, REPORTS TAKING ADVIL AND THAT "IT IS NOT HELPING." PT DENIES VISION CHANGES, GROSS NEURO INTACT, DENIES DIZZINESS. PT SITTING UP ON GURNEY, VSS, BED IN LOWEST, CALL LIGHT ON LAP, NAD, WCTM.
[2020-09-09] MEDS ORDERED: IBUPROFEN 600 MG TABLET ONE (20:49)
[2020-09-09] MEDS ORDERED: IBUPROFEN 200 MG TABLET PO ONE (21:00)
[2020-09-09 21:29] LABS: BASOPHILS % (AUTO) 1 % (0-1); EOSINOPHILS % (AUTO) 4 % (1-7); LYMPHOCYTES % (AUTO) 32 % (22-44); MEAN CORPUSCULAR HEMOGLOBIN 28.2 pg (27.0-34.8); MEAN CORPUSCULAR HGB CONC 32.7 g/dL (32.4-35.8); MEAN PLATELET VOLUME 9.2 fL (7.4-10.4); MONOCYTES % (AUTO) 5 % (2-9); NEUTROPHILS % (AUTO) 58 % (42-75); PLATELET COUNT 219 x10^3/uL (130-400); RED BLOOD COUNT 4.81 x10^6/uL (3.82-5.3); RED CELL DISTRIBUTION WIDTH 14.9 % (9.6-15.2)
[2020-09-09 21:33] LABS: ALBUMIN 3.5 g/dL (3.4-5.0); ANION GAP 4 mmol/L (5-15); CALCIUM 8.6 mg/dL (8.5-10.1); CHLORIDE 109 mmol/L (98-107); CREATININE 0.89 mg/dL (0.55-1.02); MD NO
--- NOTE | 2020-09-09 21:50 | NUR ---
PT RESTING ON GURNEY, NAD, NO CHANGE IN CONDITION, BED IN LOWEST, CALL LIGHT ON LAP, RAILS ENGAGED. WATCHING TV, WCTM. WAITING FOR LAB RESULTS AND UA
[2020-09-09 22:01] LABS: FREE T4 (FREE THYROXINE) 1.15 ng/dL (0.76-1.46)
[2020-09-09 22:11] LABS: MICROSCOPIC NOT IND
[2020-09-09 22:25] LABS: AMPHETAMINE SCREEN, URINE Negative (Negative); BARBITURATE SCREEN, URINE Negative (Negative); BENZODIAZEPINE SCREEN, URINE Negative (Negative); CANNABINOID SCREEN, URINE Negative (Negative); COCAINE SCREEN, URINE Negative (Negative); METHADONE SCREEN, URINE Negative (Negative); OPIATE SCREEN, URINE Negative (Negative)
--- NOTE | 2020-09-09 23:00 | NUR ---
pt resting on gumack, nad, provided snacks for comfort, no change in condition, wctm. waiting for telepsych.
[2020-09-09 23:52] VITALS: BP 100/75
--- NOTE | 2020-09-09 23:52 | NUR ---
Patient given discharge instructions and they have confirmed that they understand the instructions. Patient ambulatory with steady gait. nad, denies additional questions or needs at this time. no personal belongings left in room after dc.
== END 2020-09-10 00:13 | disposition home or self-care (01) ==
LOC: ED 22:57
DX: F33.9 Major depressive disorder, recurrent, unspecified (principal); R51.9 Headache, unspecified; E03.9 Hypothyroidism, unspecified; F25.9 Schizoaffective disorder, unspecified
CPT/HCPCS: 36415; 80048; 80307; 81003; 82040; 84439; 84443; 84481; 84703; 85025; 99283

== ENCOUNTER → 2020-09-21 | Outpatient (CLI) | payer MEDICARE, MEDICAID ==
[~2020-09-21] MED LIST changes: +AZEL137S4 NAS; +LURA60TA PO; +SERT-331 PO
== END | disposition home or self-care (01) ==
LOC: STAR 14:59
PROVIDERS: ATTEND Otolaryngology
DX: Z20.822 Contact with and (suspected) exposure to COVID-19 (principal); J34.2 Deviated nasal septum; J34.3 Hypertrophy of nasal turbinates; J33.8 Other polyp of sinus; J32.2 Chronic ethmoidal sinusitis
CPT/HCPCS: 87635

== ENCOUNTER 2020-09-26 05:52 | Day surgery (SDC) | payer MEDICARE, MEDICAID ==
[~2020-09-26] VITALS: Ht 177.8 cm; Wt 103.0 kg
[2020-09-26 06:42] VITALS: BP 134/85
[2020-09-26] MEDS ORDERED: CHLORHEXIDINE 15 ML UDC MM ONE (07:00)
[2020-09-26] MEDS ORDERED: LACTATED RINGERS 1,000 ML IV SCH (07:00)
[2020-09-26] MEDS ORDERED: EPINEPHRINE TOPICAL SOLN 1 MG/ML, 30ML ONE (07:12)
[2020-09-26] MEDS ORDERED: BACITRACIN OINT 500U/GM, 15 GM ONE (07:12)
[2020-09-26] MEDS ORDERED: FLUORESCEIN SODIUM 500 MG/5 ML ONE (07:12)
[2020-09-26] MEDS ORDERED: EPINEPHRINE 1 MG/ML, 1ML ONE (07:13)
[2020-09-26] MEDS ORDERED: OXYMETAZOLINE NASAL SPRAY 0.05%,30ML ONE (07:13)
[2020-09-26] MEDS ORDERED: LIDOCAINE 1%, 20ML ONE (07:13)
[2020-09-26] MEDS ORDERED: FENTANYL PF 250 MCG/5ML ONE (07:39)
[2020-09-26] MEDS ORDERED: MIDAZOLAM 1 MG/ML, 2ML ONE (07:39)
[2020-09-26] MEDS ORDERED: MEPERIDINE/PF 25MG/0.5ML IVPush PRN (08:00)
[2020-09-26] MEDS ORDERED: OXYcodone 5 MG/5 ML ORAL.SOL UDC PO PRN (08:00)
[2020-09-26] MEDS ORDERED: hydrALAzine 20 MG/ML, 1ML IV PRN (08:00)
[2020-09-26] MEDS ORDERED: HYDROmorphone 1 MG/ML, 1ML INJ IVPush PRN (08:00)
[2020-09-26] MEDS ORDERED: LABETALOL 5MG/ML, 20ML IV PRN (08:00)
[2020-09-26] MEDS ORDERED: HALOPERIDOL 5 MG/ML IV PRN (08:00)
[2020-09-26] MEDS ORDERED: ACETAMINOPHEN 325 MG TABLET PO PRN (08:00)
[2020-09-26] MEDS ORDERED: PROMETHAZINE 25 MG/ML, 1ML IVPush PRN (08:00)
[2020-09-26] MEDS ORDERED: DIPHENHYDRAMINE 50 MG/ML, 1ML IVPush PRN (08:00)
[2020-09-26] MEDS ORDERED: ROCURONIUM 10MG/ML,5ML ONE (09:36)
[2020-09-26] MEDS ORDERED: PROPOFOL 10 MG/ML, 20ML ONE (09:36)
[2020-09-26] MEDS ORDERED: GLYCOPYRROLATE 0.2MG/1ML, 5ML ONE (09:36)
[2020-09-26] MEDS ORDERED: ONDANSETRON 2MG/ML, 2ML ONE (09:36)
[2020-09-26] MEDS ORDERED: NEOSTIGMINE 1 MG/ML, 10ML ONE (09:36)
[2020-09-26] MEDS ORDERED: SUCCINYLCHOLINE 20 MG/ML, 10ML ONE (09:36)
[2020-09-26] MEDS ORDERED: DEXAMETHASONE 4 MG/ML, 1ML ONE (09:36)
[2020-09-26] MEDS ORDERED: CEFAZOLIN 1,000 MG ONE (09:36)
[2020-09-26] MEDS ORDERED: FENTANYL PF 100 MCG/2ML ONE (10:20)
[2020-09-26] MEDS: FENTANYL PF 100 MCG/2ML IV PRN ×2 (10:24→10:34)
[2020-09-26] MEDS ORDERED: OXYcodone 5 MG/5 ML ORAL.SOL UDC ONE (10:35)
== END 2020-09-26 13:15 | disposition home or self-care (01) ==
LOC: OUT 05:52
PROVIDERS: ATTEND Otolaryngology
DX: J32.2 Chronic ethmoidal sinusitis (principal); J33.8 Other polyp of sinus; J34.2 Deviated nasal septum; J30.9 Allergic rhinitis, unspecified; J34.3 Hypertrophy of nasal turbinates; J35.2 Hypertrophy of adenoids; E03.9 Hypothyroidism, unspecified; F32.9 Major depressive disorder, single episode, unspecified; Z79.890 Hormone replacement therapy; Z79.899 Other long term (current) drug therapy
CPT/HCPCS: 30140; 30520; 31256; 31257; 81025; 88304; 88311; J0171; J0330; J0690; J1100; J2250; J2405; J2704; J3010; J7120; J2710

== ENCOUNTER 2020-10-03 08:57 | Day surgery (SDC) | payer MEDICARE, MEDICAID ==
[~2020-10-03] VITALS: Ht 177.8 cm; Wt 104.2 kg
[2020-10-03 09:28] VITALS: BP 119/81
[2020-10-03] MEDS ORDERED: LIDOCAINE 4%, 4 ML SYR/CANN TP ONE (11:21)
[2020-10-03] MEDS ORDERED: OXYMETAZOLINE NASAL SPRAY 0.05%,30ML NAS ONE (11:22)
== END 2020-10-03 11:37 | disposition home or self-care (01) ==
LOC: OR 08:57 → OUT 11:37
PROVIDERS: ATTEND Otolaryngology
DX: J32.4 Chronic pansinusitis (principal); J33.8 Other polyp of sinus; G47.33 Obstructive sleep apnea (adult) (pediatric); H60.313 Diffuse otitis externa, bilateral; Z20.822 Contact with and (suspected) exposure to COVID-19
CPT/HCPCS: 87635

== ENCOUNTER 2020-11-29 17:02 | Emergency (ER) | payer MEDICARE, MEDICAID ==
[2020-11-29 17:16] VITALS: BP 120/93
== END 2020-11-29 18:20 | disposition home or self-care (01) ==
LOC: ED 18:14
DX: F33.9 Major depressive disorder, recurrent, unspecified (principal); K29.00 Acute gastritis without bleeding
CPT/HCPCS: 99284

== ENCOUNTER 2020-12-14 12:12 | Emergency (ER) | payer MEDICARE, MEDICAID ==
[~2020-12-14] VITALS: Ht 177.8 cm; Wt 106.1 kg
[~2020-12-14 12:12] MED LIST changes: -HYDR-1067 PO; +HYDR-2214 PO
--- NOTE | 2020-12-14 12:55 | NUR ---
URINE COLLECTED/SENT TO LAB. PT STATES SOME PAIN WITH URINATION. ORDER FOR UA PLACED PE PROTOCOL. CALL LIGHT WITHIN REACH. WARM BLANKET PROVIDED.
[2020-12-14 13:17] LABS: MICROSCOPIC INDICATED
[2020-12-14 14:11] LABS: BASOPHILS % (AUTO) 1 % (0-1); EOSINOPHILS % (AUTO) 5 % (1-7); LYMPHOCYTES % (AUTO) 28 % (22-44); MEAN CORPUSCULAR HEMOGLOBIN 27.6 pg (27.0-34.8); MEAN CORPUSCULAR HGB CONC 32.9 g/dL (32.4-35.8); MONOCYTES % (AUTO) 6 % (2-9); NEUTROPHILS % (AUTO) 60 % (42-75); PLATELET COUNT 226 x10^3/uL (130-400); RED BLOOD COUNT 4.45 x10^6/uL (3.82-5.3); RED CELL DISTRIBUTION WIDTH 13.9 % (9.6-15.2)
[2020-12-14 14:14] LABS: ALBUMIN 3.4 g/dL (3.4-5.0); ANION GAP 3 mmol/L (5-15); CALCIUM 8.6 mg/dL (8.5-10.1); CHLORIDE 109 mmol/L (98-107)
[2020-12-14 14:18] LABS: ALANINE AMINOTRANSFERASE 33 U/L (12-78); ALKALINE PHOSPHATASE 93 U/L (45-117); BILIRUBIN,TOTAL 0.5 mg/dL (0.2-1.0); CREATININE 0.84 mg/dL (0.55-1.02); MD NO; TOTAL PROTEIN 6.4 g/dL (6.4-8.2)
[2020-12-14] MEDS ORDERED: KETOROLAC 30 MG/1 ML IM ONE (14:30)
[2020-12-14] MEDS ORDERED: KETOROLAC 60 MG/2 ML ONE (14:43)
--- NOTE | 2020-12-14 14:50 | NUR ---
PT MEDICATED PER ERP ORDER FOR 10/10 ABD PAIN. VSS/UPDATED IN COMPUTER. PT PENDING DISCHARGE.
[2020-12-14 15:03] VITALS: BP 121/68
== END 2020-12-14 15:05 | disposition home or self-care (01) ==
LOC: ED 14:40
DX: N30.00 Acute cystitis without hematuria (principal); R10.31 Right lower quadrant pain; R10.11 Right upper quadrant pain; R11.2 Nausea with vomiting, unspecified
CPT/HCPCS: 36415; 74021; 80053; 81001; 85025; 87077; 87086; 87186; 96372; 99284; J1885

== ENCOUNTER 2020-12-21 14:18 | Emergency (ER) | payer MEDICARE, MEDICAID ==
[~2020-12-21] VITALS: Ht 177.8 cm; Wt 105.8 kg
[2020-12-21 14:29] VITALS: BP 117/81
[2020-12-21 15:07] LABS: BASOPHILS % (AUTO) 1 % (0-1); EOSINOPHILS % (AUTO) 4 % (1-7); LYMPHOCYTES % (AUTO) 28 % (22-44); MEAN CORPUSCULAR HEMOGLOBIN 27.5 pg (27.0-34.8); MEAN CORPUSCULAR HGB CONC 32.9 g/dL (32.4-35.8); MEAN PLATELET VOLUME 9.3 fL (7.4-10.4); MONOCYTES % (AUTO) 6 % (2-9); NEUTROPHILS % (AUTO) 61 % (42-75); PLATELET COUNT 243 x10^3/uL (130-400); RED BLOOD COUNT 4.75 x10^6/uL (3.82-5.3); RED CELL DISTRIBUTION WIDTH 13.8 % (9.6-15.2)
[2020-12-21 15:11] LABS: MD NO
[2020-12-21 15:18] LABS: ALANINE AMINOTRANSFERASE 42 U/L (12-78); ALBUMIN 3.6 g/dL (3.4-5.0); ANION GAP 5 mmol/L (5-15); CALCIUM 8.9 mg/dL (8.5-10.1); CHLORIDE 108 mmol/L (98-107); CREATININE 0.87 mg/dL (0.55-1.02)
--- NOTE | 2020-12-21 15:20 | NUR ---
SIGNALS COLLECTION TECHNICIAN: PT TO ROOM FROM MARIA R SCHREIBER.
[2020-12-21 15:22] LABS: ALKALINE PHOSPHATASE 107 U/L (45-117); BILIRUBIN,TOTAL 0.3 mg/dL (0.2-1.0); TOTAL PROTEIN 7.1 g/dL (6.4-8.2)
[2020-12-21 16:19] LABS: MICROSCOPIC AUTO
--- NOTE | 2020-12-21 17:25 | NUR ---
ASSUMED CARE FOR DISCHARGE ONLY: Patient/Caregiver given discharge instructions and they have confirmed that they understand the instructions. Patient ambulatory with steady gait.
== END 2020-12-21 17:28 | disposition home or self-care (01) ==
LOC: ED 17:00
DX: R11.2 Nausea with vomiting, unspecified (principal); R19.7 Diarrhea, unspecified; R10.9 Unspecified abdominal pain; E03.9 Hypothyroidism, unspecified
CPT/HCPCS: 36415; 74018; 80053; 81001; 84703; 85025; 87086; 99284

== ENCOUNTER 2021-01-25 11:34 | Emergency (ER) | payer MEDICARE, MEDICAID ==
[~2021-01-25] VITALS: Ht 177.8 cm; Wt 108.8 kg
[2021-01-25 11:46] VITALS: BP 117/87
--- NOTE | 2021-01-25 11:55 | NUR ---
PATIENT WALKED BACK FROM TRIAGE WITH CHIEF C/O DIARRHEA, SOB, CONGESTION AND SORE THROAT X7 DAYS. DENIES FEVERS. PATIENT WAS RECENTLY IN [place], GOT BACK FRIDAY. KORIN, CALL LIGHT WITHIN REACH.
--- NOTE | 2021-01-25 12:13 | NUR ---
X-RAY AT BEDSIDE.
[2021-01-25 12:43] LABS: RAPID INFLUENZA A Negative (Negative); RAPID INFLUENZA B Negative (Negative)
--- NOTE | 2021-01-25 13:04 | NUR ---
Patient given discharge instructions and prescriptions and they have confirmed that they understand the instructions. Patient ambulatory with steady gait. NAD, all questions answered appropriately, denies additional needs at this time. No personal belongings left in room after discharge.
== END 2021-01-25 13:05 | disposition home or self-care (01) ==
LOC: ED 12:59
DX: J18.9 Pneumonia, unspecified organism (principal); Z20.822 Contact with and (suspected) exposure to COVID-19; R05 Cough; R94.31 Abnormal electrocardiogram [ECG] [EKG]; E03.9 Hypothyroidism, unspecified; Z90.49 Acquired absence of other specified parts of digestive tract; Z90.89 Acquired absence of other organs
CPT/HCPCS: 71045; 87400; 93005; 99285; U0003; U0005

== ENCOUNTER 2021-01-28 12:45 | Emergency (ER) | payer MEDICARE, MEDICAID ==
[~2021-01-28] VITALS: Ht 177.8 cm; Wt 109.5 kg
--- NOTE | 2021-01-28 13:13 | NUR ---
PA AT BS
--- NOTE | 2021-01-28 13:25 | NUR ---
PT AMBULATORY TO BR WITH UPRIGHT STEADY GAIT
--- NOTE | 2021-01-28 13:33 | NUR ---
PT TO XRAY
[2021-01-28 13:47] LABS: MICROSCOPIC AUTO
[2021-01-28] MEDS ORDERED: ACETAMINOPHEN 325 MG TABLET PO ONE (14:00)
[2021-01-28] MEDS ORDERED: KETOROLAC 30 MG/1 ML IM ONE (14:00)
[2021-01-28] MEDS ORDERED: ACETAMINOPHEN 325 MG TABLET ONE (14:01)
[2021-01-28] MEDS ORDERED: KETOROLAC 60 MG/2 ML ONE (14:01)
[2021-01-28 14:20] LABS: BASOPHILS % (AUTO) 1 % (0-1); EOSINOPHILS % (AUTO) 4 % (1-7); LYMPHOCYTES % (AUTO) 31 % (22-44); MEAN CORPUSCULAR HEMOGLOBIN 27.3 pg (27.0-34.8); MEAN CORPUSCULAR HGB CONC 32.9 g/dL (32.4-35.8); MEAN PLATELET VOLUME 8.9 fL (7.4-10.4); MONOCYTES % (AUTO) 6 % (2-9); NEUTROPHILS % (AUTO) 58 % (42-75); PLATELET COUNT 240 x10^3/uL (130-400); RED BLOOD COUNT 4.68 x10^6/uL (3.82-5.3); RED CELL DISTRIBUTION WIDTH 14.9 % (9.6-15.2)
[2021-01-28 14:28] LABS: ALANINE AMINOTRANSFERASE 38 U/L (12-78); ALBUMIN 3.5 g/dL (3.4-5.0); ANION GAP 4 mmol/L (5-15); CALCIUM 8.6 mg/dL (8.5-10.1); CHLORIDE 110 mmol/L (98-107); CREATININE 0.79 mg/dL (0.55-1.02)
[2021-01-28 14:33] LABS: ALKALINE PHOSPHATASE 97 U/L (45-117); BILIRUBIN,TOTAL 0.2 mg/dL (0.2-1.0)
[2021-01-28 14:34] VITALS: BP 102/72
--- NOTE | 2021-01-28 14:34 | NUR ---
PT RESTING ON [employer], WATCHING TV. NADN/VSS. CALL LIGHT WITHIN REACH. NO NEEDS AT THIS TIME
--- NOTE | 2021-01-28 15:31 | NUR ---
Patient given discharge instructions and they have confirmed that they understand the instructions. Patient ambulatory with steady gait.
== END 2021-01-28 15:32 | disposition home or self-care (01) ==
LOC: ED 14:19
DX: R10.84 Generalized abdominal pain (principal); R11.2 Nausea with vomiting, unspecified; R19.7 Diarrhea, unspecified; J18.9 Pneumonia, unspecified organism
CPT/HCPCS: 36415; 74021; 80053; 81001; 84703; 85025; 87086; 96372; 99284; J1885

== ENCOUNTER 2021-02-01 17:49 | Emergency (ER) | payer MEDICARE, MEDICAID ==
[~2021-02-01] VITALS: Ht 177.8 cm; Wt 109.0 kg
--- NOTE | 2021-02-01 19:17 | NUR ---
LAURA MEEKS FROM HOME FOR SI. PT WAS SEEN, [place] AND RELEASED FROM [facility] THIS AM. PT WENT HOME AND CALLED THE SUICIDE HOTLINE AND THEY WERE ABLE TO TALK HER DOWN FROM TAKING ALL HER MEDICATION. PT THEN CALLED 911 TODAY. PT REPORTS TAKING LATUDA, LEVOTHYROXINE, AND SERTRALINE WELL A UNKNOWN DEPRESSION MED
--- NOTE | 2021-02-01 19:21 | NUR ---
contacted bryon godinez regarding pt. unable to come back tonight. spoke with her on the phone and she states she is going to reach out to the [facility] provider. records were requested from the [facility]
[2021-02-01 20:06] LABS: BASOPHILS % (AUTO) 2 % (0-1); EOSINOPHILS % (AUTO) 4 % (1-7); LYMPHOCYTES % (AUTO) 26 % (22-44); MEAN CORPUSCULAR HEMOGLOBIN 27.2 pg (27.0-34.8); MEAN CORPUSCULAR HGB CONC 32.7 g/dL (32.4-35.8); MEAN PLATELET VOLUME 8.8 fL (7.4-10.4); MONOCYTES % (AUTO) 6 % (2-9); NEUTROPHILS % (AUTO) 63 % (42-75); PLATELET COUNT 253 x10^3/uL (130-400); RED BLOOD COUNT 4.56 x10^6/uL (3.82-5.3); RED CELL DISTRIBUTION WIDTH 15.5 % (9.6-15.2)
[2021-02-01 20:17] LABS: ALBUMIN 3.2 g/dL (3.4-5.0); ANION GAP 5 mmol/L (5-15); CALCIUM 8.4 mg/dL (8.5-10.1); CHLORIDE 109 mmol/L (98-107)
[2021-02-01 20:18] LABS: SALICYLATE LEVEL < 1.7 mg/dL (2.8-20.0)
[2021-02-01 20:29] LABS: CREATININE 0.88 mg/dL (0.55-1.02)
--- NOTE | 2021-02-01 20:49 | NUR ---
TASK RN: PT AMBULATORY WITH STEADY GAIT TO BATHROOM TO ATTEMPT TO PROVIDE URINE SAMPLE. PT STATES "I CAN'T PEE RIGHT NOW, I NEED SOMETHING TO DRINK." PT PROVIDED WATER PER REQUEST. SITTER REMAINS IN VIEW. SAFETY PRECAUTIONS IN PLACE.
[2021-02-01 21:42] LABS: AMPHETAMINE SCREEN, URINE Negative (Negative); BARBITURATE SCREEN, URINE Negative (Negative); BENZODIAZEPINE SCREEN, URINE Negative (Negative); CANNABINOID SCREEN, URINE Negative (Negative); COCAINE SCREEN, URINE Negative (Negative); METHADONE SCREEN, URINE Negative (Negative); OPIATE SCREEN, URINE Negative (Negative)
--- NOTE | 2021-02-01 21:56 | NUR ---
REPORT RECEIVED FROM DAVE RAPP
--- NOTE | 2021-02-01 22:01 | NUR ---
PT SITTING URPIGHT ON KORIN PANDYA. PT DENIES ANY NEEDS AT THIS TIME. SITTER IN VIEW AND SAFETY PRECAUTIONS IN PLACE
--- NOTE | 2021-02-02 00:31 | NUR ---
PT MOVED FROM ED GURNEY TO HOSPITAL BED. PT TOLERATED WELL. PT DENIES ANY ADDITIONAL NEEDS AT THIS TIME. SITTER IN VIEW, SAFETY PRECAUTIONS IN PLACE.
--- NOTE | 2021-02-02 01:22 | NUR ---
TASK RN: PT ASLEEP IN [facility] AT THIS TIME WITH NADN AND EQUAL BILATERAL RISE AND FALL OF CHEST NOTED. SITTER OUTSIDE OF ROOM FOR DIRECT OBSERVATION OF PT AT THIS TIME.
--- NOTE | 2021-02-02 06:05 | NUR ---
PT SUPINE ON HOSPITAL BED, RESTING COMFORTABLY WITH EYES CLOSED. PT DENIES ANY NEEDS AT THIS TIME. SAFETY PRECAUTIONS IN PLACE, SAFETY GILLESPIE DOWN AND SITTER IN VIEW.
--- NOTE | 2021-02-02 06:49 | NUR ---
RECEIVED REPORT FROM RILEY RAPP, PLAN OF CARE DISCUSSED. PT SLEEPING RESP EVEN AND UNLABORED, SITTER AT BS, ROOM SECURED. ORDERED BREAKFAST.
--- NOTE | 2021-02-02 06:53 | NUR ---
REPORT GIVEN TO SARITA RAPP
--- NOTE | 2021-02-02 08:19 | NUR ---
THROUGHMARIPOSA RN: SPOKE WITH [facility]. WAITING FOR PSYCH MD REVIEW OF PT CHART.
--- NOTE | 2021-02-02 08:30 | NUR ---
PT AWAKE, BREAKFAST GIVEN, VERBALIZED NO NEEDS, SITTER AT DOOR, ROOM REMAINS SECURED
--- NOTE | 2021-02-02 08:57 | NUR ---
RECEIVED REPORT FROM AMBROCIO DUNAWAY RN. PT RESTING ON HOSPITAL BED. SITTER REMAINS AT BEDSIDE. ROOM REMAINS SECURE. PT TAKING NIBBLES OF BREAKFAST.
--- NOTE | 2021-02-02 09:14 | NUR ---
ASSESSMENT COMPLETE. PT DENIES FEELING SI AT THIS TIME. STATES "I FEEL MUCH BETTER NOW". PT NOTIFIED OF POC FOR ASSESSMENT FROM PSYCH BLOOD DONOR RECRUITER SUPERVISOR. PT VERBALIZES UNDERSTANDING. SITTER REMAINS AT BEDSIDE. ROOM REMAINS SECURE.
--- NOTE | 2021-02-02 10:30 | NUR ---
PT RESTING ON BED. NADN. SITTER REMAINS AT BEDSIDE. ROOM REMAINS SECURE.
--- NOTE | 2021-02-02 11:05 | NUR ---
PT RESTING ON BED. NADN. SITTER REMAINS AT BEDSIDE. ROOM REMAINS SECURE.
--- NOTE | 2021-02-02 11:09 | NUR ---
THROUGHPUT RN: COVID RESULTS "DETECTED" BHU DECLINED PT.
--- NOTE | 2021-02-02 11:12 | NUR ---
PT CAME BACK POSITIVE FOR COVID-19. PT NOTIFIED OF RESULTS IN ROOM. SITTER NOTIFIED. ISO CART PLACED IN FRONT OF PT ROOM. PERRI DUNAWAY RN NOTIFIED OF POSITIVE RESULT.
--- NOTE | 2021-02-02 11:49 | NUR ---
THROUGHPUT RN: PACKET FAXED TO [facility]. SPOKE TO CIARA AT [facility], DISCUSSED PT DC'D FROM THERE YESTERDAY. [place] DETECTED THIS AM WITH OUR TESTING. CIARA TO DISCUSS CASE WITH ADMINISTRATION. SPOKE TO JATINDER AT [facility], NO AVAILABILTY TO ADMIT COVID POSITIVE AT THIS TIME.
--- NOTE | 2021-02-02 12:10 | NUR ---
PT PROVIDED W/ SI LUNCH TRAY. PT RESTING ON BED. NADN. SITTER REMAINS AT BEDSIDE. ROOM REMAINS SECURE. PT C/O MAIN IN HER CHEST WHEN SHE COUGHS. DENIES ANY CP WHEN SHE IS NOT COUGHING. EKG COMPLETED.
--- NOTE | 2021-02-02 13:13 | NUR ---
PT SLEEPING IN BED. NADN. SITTER REMAINS AT BEDSIDE. ROOM REMAINS SECURE.
[2021-02-02] MEDS ORDERED: DIPHENHYDRAMINE 25 MG CAPSULE PO ONE (14:00)
[2021-02-02] MEDS ORDERED: DIPHENHYDRAMINE 25 MG CAPSULE ONE (14:04)
--- NOTE | 2021-02-02 14:07 | NUR ---
PT STATES SHE IS HAVING SOME CONGESTION. DENIES CP/SOB. STATES "MELCHOR NO NOT YET". DENIES FEVERS/CHILLS. ERP DR. MACK NOTIFIED AND NEW ORDERS PLACED FOR BENADRYL 25 MG PO. PT RESTING ON [place]. KORIN. SITTER REMAINS AT BEDSIDE. ROOM REMAINS SECURE.
--- NOTE | 2021-02-02 16:15 | NUR ---
PT RESTING ON BED. NADN. SITTER REMAINS AT BEDSIDE. ROOM REMAINS SECURED.
--- NOTE | 2021-02-02 16:34 | NUR ---
BREAK RN: PT RESTING IN ROOM. NO ACUTE DISTRESS NOTED. VS STABLE. SITTER AT DOOR. WILL CONTINUE TO MONITOR WHILE PRIMARY RN IS ON BREAK.
[2021-02-02 17:30] VITALS: BP 98/68
--- NOTE | 2021-02-02 17:31 | NUR ---
PT RESTING IN BED. NADN. VSS. PT DENIES CP/SOB. SITTER REMAINS AT BEDSIDE. ROOM REMAINS SECURE. PT PROVIDED W/ SI DINNER TRAY.
--- NOTE | 2021-02-02 17:45 | NUR ---
REJI, PSYCH IMPLEMENTATION PROJECT COORDINATOR AT BEDSIDE FOR RE-EVAL.
--- NOTE | 2021-02-02 18:30 | NUR ---
PT RESTING IN BED. NADN. SITTER REMAINS AT BEDSIDE. ROOM REMAINS SECURE.
--- NOTE | 2021-02-02 19:42 | NUR ---
PT RESTING IN BED. NADN. SITTER REMAINS AT BEDSIDE. ROOM REMAINS SECURE.
--- NOTE | 2021-02-02 20:24 | NUR ---
LA RN: MILA Ayad TO ADMIT PATIENT
--- NOTE | 2021-02-02 20:43 | NUR ---
REPORT GIVEN TO LINDY, RECEIVING RN. ALL QUESTIONS ANSWERED. AWAITING PT TRANSPORT.
[2021-02-02] MEDS ORDERED: LURASIDONE 20 MG TABLET PO SCH (21:00)
[2021-02-02] MEDS ORDERED: SERTRALINE 100MG TABLET PO SCH (21:00)
[2021-02-03] MEDS ORDERED: LEVOTHYROXINE 88 MCG TABLET PO SCH (06:00)
== END 2021-02-02 20:47 ==
LOC: ED 18:17
DX: R45.851 Suicidal ideations (principal); Z20.822 Contact with and (suspected) exposure to COVID-19; F25.9 Schizoaffective disorder, unspecified; E03.9 Hypothyroidism, unspecified; Z90.49 Acquired absence of other specified parts of digestive tract; Z90.89 Acquired absence of other organs
CPT/HCPCS: 36415; 80048; 80299; 80307; 80320; 82040; 84443; 85025; 87426; 99285; Q0163; U0003; U0005; 80329; G0480

== ENCOUNTER 2021-02-14 18:45 | Emergency (ER) | payer MEDICARE, MEDICAID ==
[~2021-02-14] VITALS: Ht 177.8 cm; Wt 90.0 kg
[~2021-02-14 18:45] MED LIST changes: +LEVO88TA2 PO; +LURA20TA PO; +SERT100T32 PO
[2021-02-14 19:28] VITALS: BP 106/69
--- NOTE | 2021-02-14 19:31 | NUR ---
BIB EMS FROM HOME. PT STATES TAKING 3 80 MG PILLS OF LATUDA AND 30 10 MG PILLS OF MELATONIN IN AN ATTEMPT TO HARM HERSELF. PT STATES HE FRIEND RECENTLY , SHE WAS AT HER TODAY AND EXPRESSES WANTING TO AND SEE HER IN HEAVEN. SAFTEY MEASURES PLACED, BELONGINGS PLACED IN LOCKER AND BELONGINGS LIST MADE AND SIGNED. STATES HISTORY OF DEPRESSION, DENIES ANY OTHER HISTORY. PT STATES SHE IS UNABLE TO URINATE AT THIS TIME, AWAITING ERP EVAL
[2021-02-14 20:21] LABS: BASOPHILS % (AUTO) 1 % (0-1); EOSINOPHILS % (AUTO) 3 % (1-7); LYMPHOCYTES % (AUTO) 21 % (22-44); MEAN CORPUSCULAR HEMOGLOBIN 27.4 pg (27.0-34.8); MEAN CORPUSCULAR HGB CONC 33.3 g/dL (32.4-35.8); MEAN PLATELET VOLUME 8.8 fL (7.4-10.4); MONOCYTES % (AUTO) 5 % (2-9); NEUTROPHILS % (AUTO) 71 % (42-75); PLATELET COUNT 224 x10^3/uL (130-400); RED BLOOD COUNT 4.62 x10^6/uL (3.82-5.3); RED CELL DISTRIBUTION WIDTH 15.4 % (9.6-15.2)
[2021-02-14 20:31] LABS: ALANINE AMINOTRANSFERASE 32 U/L (12-78); ALBUMIN 3.5 g/dL (3.4-5.0); ANION GAP 6 mmol/L (5-15); CALCIUM 8.6 mg/dL (8.5-10.1); CHLORIDE 110 mmol/L (98-107); CREATININE 0.86 mg/dL (0.55-1.02)
[2021-02-14 20:41] LABS: ALKALINE PHOSPHATASE 101 U/L (45-117); BILIRUBIN,TOTAL 0.4 mg/dL (0.2-1.0)
[2021-02-14 20:47] LABS: SALICYLATE LEVEL < 1.7 mg/dL (2.8-20.0)
[2021-02-14 21:00] LABS: FREE T4 (FREE THYROXINE) 0.93 ng/dL (0.76-1.46)
--- NOTE | 2021-02-14 21:30 | NUR ---
PT AMBULATED TO RESTROOM FOR URINE SAMPLE, NO OTHER NEEDS AT THIS TIME. IN LINE OF SIGHT OF SITTER
[2021-02-14 21:54] LABS: AMPHETAMINE SCREEN, URINE Negative (Negative); BARBITURATE SCREEN, URINE Negative (Negative); BENZODIAZEPINE SCREEN, URINE Negative (Negative); CANNABINOID SCREEN, URINE Negative (Negative); COCAINE SCREEN, URINE Negative (Negative); METHADONE SCREEN, URINE Negative (Negative); OPIATE SCREEN, URINE Negative (Negative)
--- NOTE | 2021-02-14 22:34 | NUR ---
PT SLEEPING IN GURNEY, RESP EVEN/UNLABORED, IN LOINE OF SIGHT OF SITTER. MONITORS STILL IN PLACE
--- NOTE | 2021-02-14 23:26 | NUR ---
SPOKE WITH ERIBERTO AT [facility] FOR REPORT. THEY WILL FAX OVER INFO TO [facility] [facility] AND MAY ACCEPT.
--- NOTE | 2021-02-14 23:28 | NUR ---
PT PLACED ON HOSPITAL BED, RESP EVEN/UNLABORED, GIVEN JUICE PER REQUEST. IN LINE OF SIGHT OF SITTER
--- NOTE | 2021-02-14 23:30 | NUR ---
DEEPTI PANDYA) ACCEPTING PT,
== END 2021-02-15 01:10 ==
LOC: ED 20:47
DX: R45.851 Suicidal ideations (principal); F32.9 Major depressive disorder, single episode, unspecified; T65.91XA Toxic effect of unspecified substance, accidental (unintentional), initial encounter; E03.9 Hypothyroidism, unspecified; Z90.49 Acquired absence of other specified parts of digestive tract; F25.9 Schizoaffective disorder, unspecified; Y92.9 Unspecified place or not applicable
CPT/HCPCS: 36415; 80053; 80299; 80307; 80320; 80329; 84439; 84443; 84703; 85025; 99285; G0480

== ENCOUNTER 2021-02-27 16:54 | Emergency (ER) | payer MEDICARE, MEDICAID ==
[~2021-02-27] VITALS: Ht 177.8 cm; Wt 107.6 kg
--- NOTE | 2021-02-27 17:11 | NUR ---
SKILLED LABORER: EKG COMPLETE IN TRIAGE.
--- NOTE | 2021-02-27 18:49 | NUR ---
certified registered locksmith: Pt ambulatory to room from lobby at this time.
[2021-02-27] MEDS ORDERED: FAMOTIDINE 20 MG/2 ML IVPush ONE (19:30)
[2021-02-27] MEDS ORDERED: SODIUM CHLORIDE 0.9% 1,000ML IVBOLUS ONE (19:30)
[2021-02-27] MEDS ORDERED: ONDANSETRON 2MG/ML, 2ML IVPush ONE (19:30)
[2021-02-27] MEDS ORDERED: SODIUM CHLORIDE FLUSH 10ML SYR IVF ONE (19:30)
[2021-02-27 20:14] LABS: BASOPHILS % (AUTO) 1 % (0-1); EOSINOPHILS % (AUTO) 3 % (1-7); LYMPHOCYTES % (AUTO) 22 % (22-44); MEAN CORPUSCULAR HEMOGLOBIN 27.4 pg (27.0-34.8); MEAN CORPUSCULAR HGB CONC 32.7 g/dL (32.4-35.8); MONOCYTES % (AUTO) 6 % (2-9); NEUTROPHILS % (AUTO) 68 % (42-75); PLATELET COUNT 238 x10^3/uL (130-400); RED BLOOD COUNT 4.82 x10^6/uL (3.82-5.3); RED CELL DISTRIBUTION WIDTH 15.9 % (9.6-15.2)
[2021-02-27] MEDS ORDERED: FAMOTIDINE 20 MG/2 ML ONE (20:20)
[2021-02-27] MEDS ORDERED: ONDANSETRON 2MG/ML, 2ML ONE (20:20)
[2021-02-27 20:21] LABS: ALBUMIN 3.7 g/dL (3.4-5.0); ANION GAP 3 mmol/L (5-15); CALCIUM 8.7 mg/dL (8.5-10.1); CHLORIDE 110 mmol/L (98-107)
[2021-02-27 20:38] LABS: ALANINE AMINOTRANSFERASE 28 U/L (12-78); ALKALINE PHOSPHATASE 93 U/L (45-117); BILIRUBIN,TOTAL 0.2 mg/dL (0.2-1.0); CREATININE 1.02 mg/dL (0.55-1.02); TOTAL PROTEIN 7.1 g/dL (6.4-8.2)
[2021-02-27 20:46] LABS: MICROSCOPIC INDICATED
--- NOTE | 2021-02-27 21:30 | NUR ---
pt ambulated to BR without difficulty
[2021-02-27] MEDS ORDERED: OMNIPAQUE 350 MG/ML, 100ML BOTTLE ONE (21:31)
--- NOTE | 2021-02-27 22:30 | NUR ---
pt denies any needs at this time, VSS
--- NOTE | 2021-02-27 23:30 | NUR ---
pt resting quietly, denies any needs
[2021-02-28 00:17] LABS: MICROSCOPIC NOT IND
--- NOTE | 2021-02-28 00:37 | NUR ---
pt sleeping, no s/s of distress, VSS
[2021-02-28 01:09] VITALS: BP 111/78
== END 2021-02-28 01:12 | disposition home or self-care (01) ==
LOC: ED 17:33
DX: U07.1 COVID-19 (principal); K52.9 Noninfective gastroenteritis and colitis, unspecified; R11.2 Nausea with vomiting, unspecified; R00.0 Tachycardia, unspecified; E03.9 Hypothyroidism, unspecified; Z90.49 Acquired absence of other specified parts of digestive tract; Z90.89 Acquired absence of other organs
CPT/HCPCS: 36415; 74177; 76830; 80053; 81001; 81003; 84703; 85025; 87086; 93005; 96361; 96374; 96375; 99285; J2405; J7030; Q9967

== ENCOUNTER 2021-03-16 20:16 | Emergency (ER) | payer MEDICARE, MEDICAID ==
[~2021-03-16] VITALS: Ht 177.8 cm; Wt 106.4 kg
--- NOTE | 2021-03-16 20:42 | NUR ---
ASSUMED CARE OF PATIENT. PATIENT REPORTS A SORE THROAT WITH LOOSE STOOL X7 DAYS. VS STABLE. CALL LIGHT IN PLACE. PT HAS BEEN SEEN BY DR GOMEZ.
[2021-03-16 21:13] VITALS: BP 120/83
== END 2021-03-16 21:26 | disposition home or self-care (01) ==
LOC: ED 20:30
DX: J20.8 Acute bronchitis due to other specified organisms (principal); Z20.822 Contact with and (suspected) exposure to COVID-19; J02.8 Acute pharyngitis due to other specified organisms; R19.7 Diarrhea, unspecified; R50.9 Fever, unspecified; B97.89 Other viral agents as the cause of diseases classified elsewhere; E03.9 Hypothyroidism, unspecified; Z90.49 Acquired absence of other specified parts of digestive tract; Z90.89 Acquired absence of other organs
CPT/HCPCS: 71045; 99284; U0003; U0005

== ENCOUNTER 2021-04-05 14:30 | Emergency (ER) | payer MEDICARE, MEDICAID | END 2021-04-05 14:52 | disposition left against medical advice (07) | LOC: ED 14:34 | DX: R05 Cough (principal); M54.9 Dorsalgia, unspecified; Z53.21 Procedure and treatment not carried out due to patient leaving prior to being seen by health care provider ==

== ENCOUNTER 2021-04-06 11:44 | Emergency (ER) | payer MEDICARE, MEDICAID ==
[~2021-04-06] VITALS: Ht 177.8 cm; Wt 106.0 kg
[2021-04-06 12:47] VITALS: BP 179/82
== END 2021-04-06 12:49 | disposition home or self-care (01) ==
LOC: ED 12:40
DX: B34.9 Viral infection, unspecified (principal); G89.29 Other chronic pain; E03.9 Hypothyroidism, unspecified; Z90.49 Acquired absence of other specified parts of digestive tract; Z90.89 Acquired absence of other organs
CPT/HCPCS: 99283